=== PATIENT | male | born 1940 | race Caucasian/White ===

== ENCOUNTER 2023-02-21 12:56 | Emergency (ER) | payer MEDICARE, BC ==
[2023-02-21] MEDS ORDERED: Aspirin 81 MG Tab.Chew PO ONE (14:15)
[2023-02-21] MEDS ORDERED: fentaNYL 100 MCG/2 ML SDV IVPUSH ONE (14:15)
[2023-02-21 14:36] LABS: BASOPHILS ABSOLUTE AUTO 0.02 K/mm3 (0.01-0.08); BASOPHILS PERCENT AUTO 0.1 % (0.1-1.2); EOSINOPHILS PERCENT AUTO 0 (0.8-7.0); HEMATOCRIT 20.2 % (40.1-51.0); IMMATURE GRAN ABSOLUTE AUTO 0.06 K/mm3 (0.00-0.10); IMMATURE GRAN PERCENT AUTO 0.4 % (<=1.0); LYMPHOCYTES PERCENT AUTO 4.5 % (21.8-53.1); MEAN CORPUSCULAR HEMOGLOBIN 23.7 pg (25.7-32.2); MEAN CORPUSCULAR HGB CONC 29.7 g/dl (32.2-35.5); MEAN CORPUSCULAR VOLUME 79.8 fl (79.0-92.2); MEAN PLATELET VOLUME 10.2 fl (9.4-12.3); MONOCYTES ABSOLUTE AUTO 0.55 K/mm3 (0.30-0.82); MONOCYTES PERCENT AUTO 3.5 % (5.3-12.2); NEUTROPHILS ABSOLUTE AUTO 14.17 K/mm3 (1.78-5.38); NEUTROPHILS PERCENT AUTO 91.5 % (34.0-67.9); PLATELET COUNT,PLT 584 K/mm3 (163-337); RED BLOOD CELL COUNT 2.53 M/mm3 (4.63-6.08)
[2023-02-21 14:42] LABS: INR 1.31; PROTHROMBIN TIME 13.7 SECONDS (9.7-12.0)
[2023-02-21 14:43] LABS: PTT,PARTIAL THROMBOPLSTIN TIME 30.8 SECONDS (21.7-31.4)
[2023-02-21] MEDS ORDERED: Lactated Ringers 1,000 ML IV SCH (14:45)
[2023-02-21 14:53] LABS: A/G RATIO 0.8 (1-2); ALBUMIN 3.1 g/dl (3.4-5.0); ANION GAP 32.5 (5-15); BILIRUBIN TOTAL 0.9 mg/dL (0.2-1.0); BUN/CREATININE RATIO 9.6 (14-18); CALCIUM 8.9 mg/dL (8.5-10.1); CREATININE 2.7 mg/dL (0.7-1.3); EST CRCL DRUG DOSING (CG) 20.4 mL/min; POTASSIUM,K 4.5 mEq/L (3.5-5.1); PROTEIN TOTAL,TP 7.1 g/dl (6.4-8.2)
[2023-02-21 14:57] LABS: LACTIC ACID 0.6 mmol/L (0.4-2.0)
[2023-02-21 15:17] LABS: SLIDE REVIEW ABNORMAL SMEAR
[2023-02-21] MEDS ORDERED: Ondansetron 4 MG/2 ML SDV IVPUSH ONE (15:23)
== END 2023-02-21 15:50 ==
LOC: JD.ED 12:56
DX: I21.3 ST elevation (STEMI) myocardial infarction of unspecified site (principal); D50.0 Iron deficiency anemia secondary to blood loss (chronic); Z88.0 Allergy status to penicillin; Z79.82 Long term (current) use of aspirin; Z79.4 Long term (current) use of insulin; Z79.899 Other long term (current) drug therapy
CPT/HCPCS: 36415; 36430; 36556; 80053; 82947; 83605; 84484; 85025; 85610; 85730; 86850; 86900; 86901; 86922; 87040; 93005; 96374; 99285; A9270; C1751; J2405; J7120; P9016; 93010